=== PATIENT | male | born 1960 | race Caucasian/White ===

== ENCOUNTER → 2017-01-12 | Outpatient (CLI) | payer MEDICARE, MEDICAID ==
[~2017-01-12] VITALS: Ht 182.9 cm; Wt 0.5 kg
[~2017-01-12] MED LIST: ALDA25TA2 PO; ALEV220C2 PO; AMLO10TA2 PO; CAND16TA7 PO; CARV6.25 PO; CHLO125TA PO; FLUID PILL PO; GLUC500T PO; LIDOCAINE 1% MDV 20ML VIAL SQ ONE; LISI40TAB PO; LOPR100T PO; LR 1,000 ML IV ONE; LR 1,000 ML IV SCH; MILKSUS PO; POTA-77 PO; SPIR50TA2 PO; TOPR200T PO; TYLE325T5 PO; [UNRECOGNIZED DRUG - OTHER]
[2017-01-12 11:09] VITALS: BP 134/83
== END ==
LOC: M SDC 10:32 → EDSTATUS 12:30
PROVIDERS: ATTEND Surgery
DX: Z53.09 Procedure and treatment not carried out because of other contraindication (principal); K80.18 Calculus of gallbladder with other cholecystitis without obstruction

== ENCOUNTER → 2017-02-07 | Outpatient (CLI) | payer MEDICARE, MEDICAID ==
[~2017-02-07] VITALS: Ht 182.9 cm; Wt 0.5 kg
[~2017-02-07] MED LIST changes: -LIDOCAINE 1% MDV 20ML VIAL SQ ONE; +LIDOCAINE 2% INJ 100 MG/5 ML SDV (FOR ANES.) As Ordered ONE; -LR 1,000 ML IV ONE; -LR 1,000 ML IV SCH; +NS 1,000 ML IV ONE; +OMEP20CA3 PO; +PROPOFOL 500 MG/50 ML VIAL As Ordered ONE; +SENE8.6T PO
--- NOTE | 2017-02-07 09:14 | ROOR ---
Patient Name: Donal Montero Procedure Date: 02/07/2017 8:48 AM Date of : 1960 Age: 57 Room: [facility] Gender: Male Note Status: Finalized Procedure: Colonoscopy Indications: Screening for colorectal malignant neoplasm Providers: DO Bonnie Mccoy MD: Kiya Quintana NP Requesting Provider: Medicines: Propofol per Anesthesia Complications: No immediate complications. Procedure: Pre-Anesthesia Assessment: - Prior to the procedure, a History and Physical was performed, and patient medications and allergies were reviewed. The patient is competent. The risks and benefits of the procedure and the sedation options and risks were discussed with the patient. All questions were answered and informed consent was obtained. Patient identification and proposed procedure were verified by the physician, the nurse, the anesthesiologist and the networking technician in the endoscopy suite. Mental Status Examination: alert and oriented. Airway Examination: normal oropharyngeal airway and neck mobility. Respiratory Examination: clear to auscultation. CV Examination: normal. Prophylactic Antibiotics: The patient does not require prophylactic antibiotics. Prior Anticoagulants: The patient has taken no previous anticoagulant or antiplatelet agents. ASA Grade Assessment: II - A patient with mild systemic disease. After reviewing the risks and benefits, the patient was deemed in satisfactory condition to undergo the procedure. The anesthesia plan was to use monitored anesthesia care (MAC). Immediately prior to administration of medications, the patient was re-assessed for adequacy to receive sedatives. The heart rate, respiratory rate, oxygen saturations, blood pressure, adequacy of pulmonary ventilation, and response to care were monitored throughout the procedure. The physical status of the patient was re-assessed after the procedure. The Colonoscope was introduced through the anus and advanced to the hepatic flexure. The colonoscopy was performed without difficulty. The patient tolerated the procedure well. Findings: The entire examined colon appeared normal on direct and retroflexion views. Impression: - The entire examined colon is normal on direct and retroflexion views. - No specimens collected. Recommendation: - Patient has a contact number available for emergencies. The signs and symptoms of potential delayed complications were discussed with the patient. Return to normal activities tomorrow. Written discharge instructions were provided to the patient. - Repeat colonoscopy in 1 year because the examination was incomplete. - Return to my office PRN. Wilner Dupree DO 02/07/2017 9:13:52 AM This report has been signed electronically. Number of Addenda: 0 Note Initiated On: 02/07/2017 8:48 AM Estimated Blood Loss: Estimated blood loss: none.
[2017-02-07 09:30] VITALS: BP 101/63
== END | disposition home or self-care (01) ==
LOC: M OPP 07:28
PROVIDERS: ATTEND Surgery
DX: Z12.11 Encounter for screening for malignant neoplasm of colon (principal); I11.0 Hypertensive heart disease with heart failure; M19.90 Unspecified osteoarthritis, unspecified site; I50.9 Heart failure, unspecified; K21.9 Gastro-esophageal reflux disease without esophagitis; F81.9 Developmental disorder of scholastic skills, unspecified; G47.30 Sleep apnea, unspecified; R06.83 Snoring; N50.89 Other specified disorders of the male genital organs; K82.9 Disease of gallbladder, unspecified; Z79.899 Other long term (current) drug therapy; Z88.2 Allergy status to sulfonamides

== ENCOUNTER → 2017-02-19 | Day surgery (SDC) | payer MEDICARE, MEDICAID ==
[~2017-02-19] VITALS: Ht 182.9 cm; Wt 104.3 kg
[~2017-02-19] MED LIST changes: +BUPIVACAINE/EPIN 0.25% 30 ML VIAL As Ordered ONE; +GLYCOPYRROLATE INJ 0.2 MG/ML 2 ML VIAL As Ordered ONE; +HYDROmorphone HCL 2 MG/ML 1ML VIAL (J1170) As Ordered ONE; +KETOROLAC 60 MG/2 ML VIAL (J1885) As Ordered ONE; +LR 1,000 ML IV ONE; +LR 1,000 ML IV SCH; +MIDAZOLAM INJ 2 MG/2 ML VIAL (J2250) As Ordered ONE; +NEOSTIGMINE 1MG/ML 5 ML SYRINGE (J2710) As Ordered ONE; +NORCO, ANEXSIA 5/325MG TABLET (HYDROcodone/ACETAMINOPHEN) PO PRN; -NS 1,000 ML IV ONE; +ONDANSETRON 4MG/2ML VIAL (J2405) As Ordered ONE; +ONDANSETRON 4MG/2ML VIAL (J2405) IV PRN; +PHENYLephrine HCL 500 MCG/5 ML (100MCG/ML) SYRINGE (J2370) As Ordered ONE; +PROPOFOL 200 MG/20 ML VIAL As Ordered ONE; -PROPOFOL 500 MG/50 ML VIAL As Ordered ONE; +ROCURONIUM BROMIDE 50 MG/5 ML VIAL/SYRINGE As Ordered ONE; +dexameTHASONE 4 MG/ML 1ML VIAL (J1100) As Ordered ONE; +ePHEDrine SULFATE 25 MG/5 ML(5MG/ML) SYRINGE As Ordered ONE; +fentaNYL 100 MCG/2 ML INJECTION (J3010) IV PRN; +fentaNYL 250 MCG/5 ML INJECTION (J3010) As Ordered ONE
--- NOTE | 2017-02-19 15:48 | RO ---
DATE OF PROCEDURE: 02/19/2017 PREOPERATIVE DIAGNOSIS: Symptomatic cholelithiasis. POSTOPERATIVE DIAGNOSES: Symptomatic cholelithiasis. Large bilateral inguinal hernias. PROCEDURE: Lap Ambika SURGEON: Wilner Dupree MD ELECTROPLATER APPRENTICE: Oj Cali MD ANESTHESIA: General: ESTIMATED BLOOD LOSS: 5 mL COMPLICATIONS: None. INDICATION FOR PROCEDURE: The patient is a 57-year-old male presents with persistent right upper quadrant abdominal pain, found to have gallstones on ultrasound. History and physical was typical for symptomatic cholelithiasis. Recommendation to proceed with laparoscopic and possible open cholecystectomy. The risks and benefits of the procedure not limited to but including bleeding, infection, hernia formation, damage to surrounding structures, need for further surgery were discussed in detail with the patient and informed consent was obtained and the procedure was planned. DESCRIPTION OF PROCEDURE: The patient brought back to operating room 7. After sufficient sedation, the abdomen was sterilely prepped and draped. Next, a time out was done to confirm proper patient and proper procedure. Following that, a stab incision was made in the left lower quadrant. Veress needle was inserted and the abdomen was insufflated to 50 mmHg. Next, a 5 mm supraumbilical incision was made, a 5 mm Optiview port was used to gain access to the abdomen. Once the abdomen was entered, the Veress needle site was examined. There were no signs of injury. Veress needle was removed. 10 mm port was placed subxiphoid, two 5 mm ports in the right upper quadrant. The fundus of gallbladder was grasped, elevated up towards the right shoulder. Omental adhesions were taken down using blunt dissection. The cystic duct and cystic artery were both then clearly identified using blunt dissection. They were both then doubly clipped and cut. The gallbladder was then removed from the gallbladder fossa using electrocautery ; brought out through the 11 mm port site using a 10 mm EndoCatch bag. Once the gallbladder was removed, electrocautery was used to control hemostasis of the liver bed. Once hemostasis was achieved, the bed was placed in Trendelenburg position and there were very large bilateral inguinal hernias that were identified. They were both unable to be reduced using gentle traction on the omentum. The patient was then flattened out and the abdomen was desufflated. Skin incisions were closed with #4-0 Vicryl subcuticular sutures. The abdomen was cleaned and dried. Steri-Strips, 4x4 and tape were applied thus ending the procedure. ROSA
[2017-02-19 16:15] VITALS: BP 118/78
== END | disposition home or self-care (01) ==
LOC: M SDC 09:05
PROVIDERS: ATTEND Surgery
DX: K80.18 Calculus of gallbladder with other cholecystitis without obstruction (principal); I10 Essential (primary) hypertension; E78.5 Hyperlipidemia, unspecified; K21.9 Gastro-esophageal reflux disease without esophagitis; Z79.899 Other long term (current) drug therapy; G47.30 Sleep apnea, unspecified; M12.9 Arthropathy, unspecified
CPT/HCPCS: 47562; 88304; J0690; J1100; J1170; J1885; J2250; J2370; J2405; J2710; J3010

== ENCOUNTER 2017-04-06 09:27 | Day surgery (SDC) | payer MEDICARE, MEDICAID ==
[~2017-04-06] VITALS: Ht 182.9 cm; Wt 104.3 kg
[~2017-04-06 09:27] MED LIST changes: -GLYCOPYRROLATE INJ 0.2 MG/ML 2 ML VIAL As Ordered ONE; -HYDROmorphone HCL 2 MG/ML 1ML VIAL (J1170) As Ordered ONE; -KETOROLAC 60 MG/2 ML VIAL (J1885) As Ordered ONE; -LIDOCAINE 2% INJ 100 MG/5 ML SDV (FOR ANES.) As Ordered ONE; -LR 1,000 ML IV ONE; -LR 1,000 ML IV SCH; -MIDAZOLAM INJ 2 MG/2 ML VIAL (J2250) As Ordered ONE; -NEOSTIGMINE 1MG/ML 5 ML SYRINGE (J2710) As Ordered ONE; -NORCO, ANEXSIA 5/325MG TABLET (HYDROcodone/ACETAMINOPHEN) PO PRN; -ONDANSETRON 4MG/2ML VIAL (J2405) As Ordered ONE; -ONDANSETRON 4MG/2ML VIAL (J2405) IV PRN; -PHENYLephrine HCL 500 MCG/5 ML (100MCG/ML) SYRINGE (J2370) As Ordered ONE; -PROPOFOL 200 MG/20 ML VIAL As Ordered ONE; -ROCURONIUM BROMIDE 50 MG/5 ML VIAL/SYRINGE As Ordered ONE; -dexameTHASONE 4 MG/ML 1ML VIAL (J1100) As Ordered ONE; -ePHEDrine SULFATE 25 MG/5 ML(5MG/ML) SYRINGE As Ordered ONE; -fentaNYL 100 MCG/2 ML INJECTION (J3010) IV PRN; -fentaNYL 250 MCG/5 ML INJECTION (J3010) As Ordered ONE
[2017-04-06] MEDS ORDERED: LR 1,000 ML IV ONE (09:45)
[2017-04-06] MEDS ORDERED: NEOSTIGMINE 1MG/ML 5 ML SYRINGE (J2710) As Ordered ONE (11:02)
[2017-04-06] MEDS ORDERED: LIDOCAINE 2% INJ 100 MG/5 ML SDV (FOR ANES.) As Ordered ONE (11:02)
[2017-04-06] MEDS ORDERED: ONDANSETRON 4MG/2ML VIAL (J2405) As Ordered ONE (11:02)
[2017-04-06] MEDS ORDERED: PROPOFOL 200 MG/20 ML VIAL As Ordered ONE (11:02)
[2017-04-06] MEDS ORDERED: ROCURONIUM BROMIDE 50 MG/5 ML VIAL/SYRINGE As Ordered ONE (11:02)
[2017-04-06] MEDS ORDERED: GLYCOPYRROLATE INJ 0.2 MG/ML 2 ML VIAL As Ordered ONE (11:02)
[2017-04-06] MEDS ORDERED: HYDROmorphone HCL 2 MG/ML 1ML VIAL (J1170) As Ordered ONE (11:03)
[2017-04-06] MEDS ORDERED: MIDAZOLAM INJ 2 MG/2 ML VIAL (J2250) As Ordered ONE (11:03)
[2017-04-06] MEDS ORDERED: fentaNYL 100 MCG/2 ML INJECTION (J3010) As Ordered ONE (11:03)
[2017-04-06] MEDS ORDERED: ONDANSETRON 4MG/2ML VIAL (J2405) IV PRN (18:30)
[2017-04-06] MEDS ORDERED: fentaNYL 100 MCG/2 ML INJECTION (J3010) IV PRN (18:30)
[2017-04-06] MEDS ORDERED: HYDROmorphone HCL 1 MG/ML SYRINGE (J1170) IV PRN (18:30)
[2017-04-06] MEDS ORDERED: NORCO, ANEXSIA 5/325MG TABLET (HYDROcodone/ACETAMINOPHEN) PO PRN (18:30)
[2017-04-06] MEDS ORDERED: LR 1,000 ML IV SCH (18:30)
[2017-04-06 20:00] VITALS: BP 129/83
[2017-04-06 20:30] VITALS: BP 148/95
[2017-04-06 21:30] VITALS: BP 120/85
[2017-04-06] MEDS: ERYTHROMYCIN OPHTH OINT OD SCH (21:44)
[2017-04-06 22:30] VITALS: BP 113/90
[2017-04-06 23:30] VITALS: BP 123/85
[2017-04-07 00:30] VITALS: BP 135/78
[2017-04-07 04:00] VITALS: BP 118/82
[2017-04-07 08:00] VITALS: BP 113/76
[2017-04-07] MEDS: ERYTHROMYCIN OPHTH OINT OD SCH (08:36)
[2017-04-07 12:00] VITALS: BP 92/63
--- NOTE | 2017-04-09 19:49 | RO ---
DATE OF PROCEDURE: 04/06/2017 PREOPERATIVE DIAGNOSIS: Incarcerated bilateral inguinal hernias. POSTOPERATIVE DIAGNOSIS: Incarcerated bilateral inguinal hernias. PROCEDURE: Robotic-assisted bilateral inguinal hernia repair. SURGEON: Dr. Wilner Dupree CHROMIUM PLATER: Dr. Sunday Singh ANESTHESIA: General. ESTIMATED BLOOD LOSS: 10 mL. COMPLICATIONS: None. INDICATION FOR PROCEDURE: The patient is a 57-year-old male who presented to me for right upper quadrant pain. He ended up having a laparoscopic cholecystectomy. Intraoperatively, I found that he had very large bilateral inguinal hernias with loops of bowel within them. Once I brought it to his attention after surgery, he mentioned that he did have a very large scrotum, and he has already seen Urology that told him he just had hydroceles and fluid in them and that there was nothing to worry about. When I told him that these were actually large hernias and he had loops of bowel within them, I recommended surgery and he as well as his family agreed. Risks and benefits of procedure not limited but including bleeding, infection, hernia recurrence, hernia formation, damage to surrounding structures, seroma formation, possibility of injury to his testicles were all discussed with the patient. Informed consent was obtained and procedure was planned. DESCRIPTION OF PROCEDURE: The patient was brought back to operating room seven after sufficient sedation, a Verdin catheter was placed. The abdomen and perineal area were all sterilely prepped and draped. The patient was in lithotomy position to be able to dock the robot. Once this was completed, a time-out was done to confirm proper patient, proper procedure. Next, a 5 mm incision was made in the left midabdomen. Veress needle was inserted and the abdomen was insufflated to 15 mmHg. Next, a 5 mm Optiview port was used to gain access to the abdomen. Once that was done, 8 mm ports were placed at the umbilicus and one in the midabdomen. The 5 mm port was then removed and replaced with an 8 mm robotic port. Next, the patient was placed in Trendelenburg position, the robot was docked. Following that, starting on the right side, which was the smaller of the two, careful dissection was used to carefully reduce loops of small bowel as well as omentum out of the hernia defect. There were multiple loops of bowel and a large amount of omentum that was very difficult to reduce. However, with a combination of blunt and some sharp dissection to take down adhesions as well as some pressure on the outside of the scrotum from the speech and language assistant, we were able to reduce this back in. Next, a transverse incision was made at the top of the defect site and the preperitoneum was entered. Once this was done, a combination of blunt and sharp dissection was used to carefully remove and dissect the hernia sac free all the way circumferentially until it could be completely reduced. This took upwards of an hour to complete due to the large size of this defect and the hernia sac. Once that was completed, the dissection was carried medially until the pubic symphysis could easily be examined. The dissection was also carried posteriorly until the vas deferens was easily identified as well as the rest of the cord structures. After this was completed, #2-0 barbed suture was used to reapproximate the large defect. This was approximated about 90% closed, leaving enough space for the rest of the cord structures to easily traverse. Once that was completed, the Bard 3DMax Light Mesh was placed inside of the right preperitoneal space. It was sutured to the pubic symphysis using an #0 Vicryl suture. The peritoneal defect was then sutured closed using a #2-0 barbed suture and the large hernia sac was carefully sutured in to the suture line as well to help prevent a recurrence. Once that was all completed, the same procedure was done on the left side. The procedure was done in the same exact fashion except the dissection took an extra 1/2 hour due to it being much larger in size and having the entire sigmoid colon within it. It took extensive coordination of efforts between the speech and language assistant as well as myself at the console to reduce all this. Once this was completed, the rest of the procedure was done the same as the right side. The patient tolerated the procedure well. There were no intraoperative complications. The robot was undocked, ports were removed. Skin incisions were closed with #4-0 Vicryl subcuticular sutures. The abdomen was cleaned and dried. Steri-Strips, 4 x 4 and tape were applied thus ending procedure.
== END 2017-04-07 13:10 | disposition home or self-care (01) ==
LOC: M SDC 09:27 → M PED 20:00 → M SDC 04-07 13:10
PROVIDERS: ATTEND Surgery
DX: K40.00 Bilateral inguinal hernia, with obstruction, without gangrene, not specified as recurrent (principal); I10 Essential (primary) hypertension; E78.00 Pure hypercholesterolemia, unspecified; K21.9 Gastro-esophageal reflux disease without esophagitis; Z79.899 Other long term (current) drug therapy; G47.30 Sleep apnea, unspecified
CPT/HCPCS: 49650; C1781; J0690; J1170; J2250; J2405; J2710; J3010

== ENCOUNTER → 2018-04-26 | Outpatient (CLI) | payer MEDICARE, MEDICAID ==
[~2018-04-26] MED LIST changes: -ALDA25TA2 PO; -ALEV220C2 PO; -AMLO10TA2 PO; -BUPIVACAINE/EPIN 0.25% 30 ML VIAL As Ordered ONE; -CAND16TA7 PO; -CARV6.25 PO; -CHLO125TA PO; -FLUID PILL PO; +GASTROGRAFIN SOLUTION 30ML (Q9963) As Ordered; -GLUC500T PO; +ISOVUE-370 76% 100ML VIAL (Q9967) As Ordered; -LISI40TAB PO; -LOPR100T PO; -MILKSUS PO; -OMEP20CA3 PO; -POTA-77 PO; -SENE8.6T PO; -SPIR50TA2 PO; -TOPR200T PO; -TYLE325T5 PO; -[UNRECOGNIZED DRUG - OTHER]
== END ==
LOC: M RAD 11:28
DX: K76.89 Other specified diseases of liver (principal); N28.1 Cyst of kidney, acquired; R19.4 Change in bowel habit; R10.30 Lower abdominal pain, unspecified
CPT/HCPCS: Q9963

== ENCOUNTER 2018-05-01 09:47 | Day surgery (SDC) | payer MEDICARE, MEDICAID ==
[2018-05-01] MEDS: NS 1,000 ML IV (10:00)
[2018-05-01] MEDS ORDERED: PHENYLephrine HCL 500 MCG/5 ML (100MCG/ML) SYRINGE (J2370) As Ordered (12:21)
[2018-05-01] MEDS ORDERED: ePHEDrine SULFATE 25 MG/5 ML(5MG/ML) SYRINGE As Ordered (12:21)
[2018-05-01] MEDS ORDERED: PROPOFOL 200 MG/20 ML VIAL As Ordered (12:21)
[2018-05-01] MEDS ORDERED: LIDOCAINE 2% INJ 100 MG/5 ML SDV (FOR ANES.) As Ordered (12:21)
== END 2018-05-01 13:02 | disposition home or self-care (01) ==
LOC: M OPP 09:47
DX: R19.4 Change in bowel habit (principal); R10.30 Lower abdominal pain, unspecified; K59.00 Constipation, unspecified; R11.0 Nausea; R14.0 Abdominal distension (gaseous); K64.1 Second degree hemorrhoids; Q43.8 Other specified congenital malformations of intestine; I11.0 Hypertensive heart disease with heart failure; E78.5 Hyperlipidemia, unspecified; K21.9 Gastro-esophageal reflux disease without esophagitis; R12 Heartburn; M19.90 Unspecified osteoarthritis, unspecified site; I50.9 Heart failure, unspecified; G31.84 Mild cognitive impairment of uncertain or unknown etiology; G47.30 Sleep apnea, unspecified; N50.9 Disorder of male genital organs, unspecified; R51 Headache; Z79.82 Long term (current) use of aspirin; Z79.899 Other long term (current) drug therapy; Z80.3 Family history of malignant neoplasm of breast
CPT/HCPCS: 45378

== ENCOUNTER 2024-09-16 09:34 | Emergency (ER) | payer MEDICARE, MEDICAID ==
[~2024-09-16] VITALS: Ht 172.7 cm; Wt 113.7 kg
[~2024-09-16 09:34] MED LIST changes: +ALDA25TA2 PO; +ALEV220C2 PO; +ALEV220T26 PO; +AMLO10TA2 PO; +AMLO1TAB25 PO; +CAND16TA17 PO; +CARV6.25 PO; +CHLO125TA PO; +EXCETAB81 PO; +FLUID PILL PO; -GASTROGRAFIN SOLUTION 30ML (Q9963) As Ordered; +GLUC500T PO; -ISOVUE-370 76% 100ML VIAL (Q9967) As Ordered; +LISI40TA52 PO; +LOPR100T PO; +METO200T41 PO; +MILK120011 PO; +OMEP1CAP73 PO; +POTA-77 PO; +SENN1TAB38 PO; +SPIR50TA4 PO; +TYLE325T5 PO; +[UNRECOGNIZED DRUG - OTHER]
[2024-09-16 10:18] LABS: KETONE, URINE AUTO RFX NEGATIVE (NEGATIVE); LEUKOCYTE ESTERASE UR AUTO RFX 2+ (NEGATIVE); MUCUS, URINE RFX MODERATE (NEGATIVE); NITRITE, URINE AUTO RFX NEGATIVE (NEGATIVE); RBC, URINE AUTO RFX 7 /HPF (0-3); SQUAM EPITHELIAL CELL UR AURFX 1 /HPF (0-6); WBC, URINE AUTO RFX 12 /HPF (0-3)
[2024-09-16 11:31] LABS: BASO % 0.4 % (0.0-1.0); EOS # 0.3 10^3/uL (0.0-0.5); EOS % 2.7 % (0.0-3.0); HEMATOCRIT 50.1 % (42.0-52.0); HEMOGLOBIN 18.3 g/dl (13.5-17.5); LYMPH # 1.2 10^3/uL (1.5-5.0); LYMPH % 12.2 % (24.0-44.0); MEAN CORPUSCULAR HEMOGLOBIN 31.4 pg (27.0-33.0); MEAN CORPUSCULAR HGB CONC 36.5 g/dl (32.0-36.5); MEAN CORPUSCULAR VOLUME 86.1 fl (80.0-96.0); MONO # 0.9 10^3/uL (0.0-0.8); MONO % 9.3 % (2.0-8.0); NEUTROPHILS # 7.6 10^3/uL (1.5-8.5); NEUTROPHILS % 75.1 % (36.0-66.0); PLATELET COUNT, AUTOMATED 275 10^3/uL (150-450); RED BLOOD COUNT 5.82 10^6/uL (4.30-6.10); WHITE BLOOD COUNT 10.1 10^3/uL (4.0-10.0)
[2024-09-16 11:44] LABS: BLOOD UREA NITROGEN 21 MG/DL (9-23); CALCIUM LEVEL 10.5 MG/DL (8.3-10.6); CARBON DIOXIDE LEVEL 30 MMOL/L (20-31); CHLORIDE LEVEL 102 MMOL/L (98-107); CREATININE FOR GFR 0.89 MG/DL (0.70-1.30); GLOMERULAR FILTRATION RATE > 60.0 (>49); GLUCOSE, FASTING 221 MG/DL (74-106); POTASSIUM SERUM 4.6 MMOL/L (3.5-5.1); SODIUM LEVEL 140 MMOL/L (136-145)
[2024-09-16] MEDS ORDERED: CIPR500T39 PO (12:10)
[2024-09-16] MEDS ORDERED: cefTRIAXone SOD 1 GM in DEXTROSE 5% (D5W) ADV/MINI-BAG 50 ML IV ONE (12:10)
[2024-09-16 12:15] VITALS: BP 106/73
[2024-09-16 12:34] VITALS: TEMP 98.2; O2SAT 94
== END 2024-09-16 12:39 | disposition home or self-care (01) ==
LOC: M ED 09:34
DX: R39.11 Hesitancy of micturition (principal); I10 Essential (primary) hypertension; Z90.89 Acquired absence of other organs; Z79.899 Other long term (current) drug therapy

== ENCOUNTER → 2024-10-03 | Outpatient (REF) | payer MEDICARE, MEDICAID ==
[~2024-10-03] MED LIST changes: +CIPR500T39 PO
[2024-10-03 13:58] LABS: APPEARANCE, URINE CLEAR (CLEAR); BACTERIA, URINE AUTO NEGATIVE (NEGATIVE); BILIRUBIN, URINE AUTO NEGATIVE (NEGATIVE); BLOOD, URINE BLOOD NEGATIVE (NEGATIVE); COLOR, URINE YELLOW (YELLOW); GLUCOSE, URINE (UA) AUTO NEGATIVE (NEGATIVE); KETONE, URINE AUTO NEGATIVE (NEGATIVE); LEUKOCYTE ESTERASE, URINE AUTO NEGATIVE (NEGATIVE); MUCUS, URINE SMALL (NEGATIVE); NITRITE, URINE AUTO NEGATIVE (NEGATIVE); PROTEIN, URINE AUTO NEGATIVE (NEGATIVE); RBC, URINE AUTO 2 /HPF (0-3); SPECIFIC GRAVITY URINE AUTO 1.016 (1.002-1.035); SQUAMOUS EPITHELIAL CELL UR AU 0 /HPF (0-6); UROBILINOGEN, URINE AUTO 0.2 mg/dL (0.0-2.0); WBC, URINE AUTO 1 /HPF (0-3)
== END ==
LOC: M SMT 13:00
PROVIDERS: ATTEND Urology
DX: N39.43 Post-void dribbling (principal)